=== PATIENT | female | born 1985 | race Asian ===

== ENCOUNTER 2017-07-03 09:44 | Inpatient (IN) | payer SELFPAY ==
[~2017-07-03] VITALS: Ht 170.2 cm; Wt 73.5 kg
[2017-07-03] MEDS ORDERED: OXYTOCIN/NORMAL SALINE 1,000 ML IV SCH (09:47)
[2017-07-03] MEDS ORDERED: NALBUPHINE HCL 10 MG/ML AMP IVP PRN (10:00)
[2017-07-03] MEDS ORDERED: DINOPROSTONE 10 MG SUPP VG ONE ×2 (10:00→18:30)
[2017-07-03] MEDS ORDERED: TERBUTALINE SULFATE 1 MG/ML VIAL SUBCUT ONE (10:00)
[2017-07-03 10:23] LABS: MEAN CORPUSCULAR VOLUME 98 fL (79.0-98.0); RED CELL DISTRIBUTION WIDTH 12.4 % (9.0-15.0)
[2017-07-03 10:25] LABS: BASOPHILS % (AUTO) 0.5 % (0.0-2.0); EOSINOPHILS % (AUTO) 0.5 % (0.0-4.0); HEMATOCRIT 32.8 % (36-48); HEMOGLOBIN 11.4 g/dL (12.0-16.0); LYMPHOCYTES # (AUTO) 1.2 K/uL (1.0-5.5); MEAN CORPUSCULAR HEMOGLOBIN 34 pg (27-31); MEAN CORPUSCULAR HGB CONC 35 % (32-36); MONOCYTES # (AUTO) 0.5 K/uL (0.0-1.0); MONOCYTES % (AUTO) 5.9 % (1.7-9.3); NEUTROPHILS % (AUTO) 78.1 % (40.0-70.0); RED BLOOD CELL COUNT(AUTO) 3.35 MIL/uL (4.2-6.2); WHITE BLOOD COUNT (AUTO) 7.7 K/uL (4.8-10.8)
[2017-07-03 11:20] LABS: PLATELET COUNT (AUTO) 128 K/uL (130-430)
[2017-07-03] MEDS: LR 1,000 ML IV SCH (11:53)
[2017-07-03] MEDS ORDERED: AMPICILLIN SODIUM 2 GM in NS 100 ML IV ONE (18:00)
[2017-07-03 18:35] VITALS: BP_SYST 118
[2017-07-03] MEDS: AMPICILLIN SODIUM 1 GM in NS 50 ML IV SCH (22:14)
[2017-07-04] MEDS: AMPICILLIN SODIUM 1 GM in NS 50 ML IV SCH ×3 (01:56→11:33)
[2017-07-04] MEDS: LR 1,000 ML IV SCH ×2 (02:23→11:33)
[2017-07-04] MEDS ORDERED: GENTAMICIN 120 mg/100 mL NS 100 ML IV ONE (07:45)
[2017-07-04] MEDS ORDERED: fentaNYL CITRATE 250 MCG/5 ML AMP ONE (13:12)
[2017-07-04] MEDS ORDERED: LR 500 ML IV ONE (13:55)
[2017-07-04] MEDS ORDERED: FENT2mCg/mL-ROPIVA0.2%/NS EPID 150 ML EP SCH (14:00)
[2017-07-04] MEDS ORDERED: fentaNYL CITRATE/PF 100 MCG/2 ML AMP EP ONE (14:00)
[2017-07-04] MEDS ORDERED: ePHEDrine sulfate 50 MG/ML VIAL IVP PRN (14:00)
[2017-07-04] MEDS ORDERED: OXYTOCIN/NORMAL SALINE 1,000 ML IV ONE (19:02)
[2017-07-04] MEDS ORDERED: OXYTOCIN/NORMAL SALINE 1,000 ML IV SCH (19:02)
[2017-07-04] MEDS ORDERED: ANUSOL 1 EA SUPP.RECT (PREPARATION H) RC PRN (19:15)
[2017-07-04] MEDS ORDERED: DOCUSATE SODIUM 100 MG CAPSULE PO PRN (19:15)
[2017-07-04] MEDS ORDERED: HYDROcodone/ACETAMIN 5-325 MG TAB (NORCO/ VICODIN) PO PRN ×2 (19:15)
[2017-07-04] MEDS ORDERED: LANOLIN 7 GM OINT. TP PRN (19:15)
[2017-07-04] MEDS ORDERED: MEASLES,MUMPS&RUBELLA VACC/PF 12500 UNIT/0.5 ML VIAL SUBQ PRN (19:15)
[2017-07-04] MEDS ORDERED: DERMOPLAST SPRAY TP PRN (19:15)
[2017-07-04] MEDS ORDERED: ACETAMINOPHEN 325 MG TABLET PO PRN (19:15)
[2017-07-04] MEDS ORDERED: SENNOSIDES/DOCUSATE SODIUM 1 TAB TABLET(SENOKOT-S) PO PRN (19:15)
[2017-07-04] MEDS ORDERED: METHYLERGONOVINE MALEATE 0.2 MG TABLET PO PRN (19:15)
[2017-07-04] MEDS ORDERED: MILK OF MAGNESIA 30 ML UDC PO PRN (19:15)
[2017-07-04] MEDS ORDERED: RHO(D) IMMUNE GLOBULIN/MALTOSE 1500 UNITS/1.3 ML (WINHRO) IM PRN (19:15)
[2017-07-04] MEDS ORDERED: TEMAZEPAM 15 MG CAPSULE PO PRN (19:15)
[2017-07-04] MEDS ORDERED: GLYCERIN/WITCH HAZEL (TUCKS PADS) TP PRN (19:15)
[2017-07-04] MEDS ORDERED: HYDROCORTISONE 0.5%, 28.35 GM TOPICAL CREAM TP PRN (19:15)
[2017-07-05] MEDS: IBUPROFEN 600 MG TABLET PO SCH ×4 (00:13→17:39)
[2017-07-05 06:33] LABS: HEMATOCRIT 26.1 % (36-48); HEMOGLOBIN 9.1 g/dL (12.0-16.0)
[2017-07-05] MEDS ORDERED: FERROUS SULFATE 325 MG TABLET.DR PO SCH (15:00)
== END 2017-07-05 19:49 | disposition home or self-care (01) | DRG 775 ==
LOC: SPU 09:44
PROVIDERS: ADMIT Obstetrics & Gynecology; ATTEND Obstetrics & Gynecology
PROC: 10D07Z6 Extraction of Products of Conception, Vacuum, Via Natural or Artificial Opening (ICD-10-PCS; principal; 2017-07-04)
PROC: 0W8NXZZ Division of Female Perineum, External Approach (ICD-10-PCS; 2017-07-04)
PROC: 3E0R3BZ Introduction of Anesthetic Agent into Spinal Canal, Percutaneous Approach (ICD-10-PCS; 2017-07-04)
PROC: 00HU33Z Insertion of Infusion Device into Spinal Canal, Percutaneous Approach (ICD-10-PCS; 2017-07-04)
DX: O70.9 Perineal laceration during delivery, unspecified (principal); Z37.0 Single live birth; Z3A.38 38 weeks gestation of pregnancy
CPT/HCPCS: 36415; 81002-TC; 85018-TC; 85025; 86592; 86886; 86900; 86901; J0290; J1580; J2300; J2590; J3010